=== PATIENT | male | born 1945 | race African-American/Black ===

== ENCOUNTER 2016-11-05 22:03 | Emergency (ER) | payer OTHER ==
[2016-11-05 22:54] LABS: MANUAL DIFF NEEDED? NO
--- NOTE | 2016-11-05 23:13 | PROVIDER DOCUMENTATION ---
HPI-EENT General - General Source: patient - History of Present Illness-EENT General EENT Location: reports: nose Severity: reports: moderate Onset/Duration: reports: 24 hours ago Timing: reports: still present Associated Symptoms: reports: denies symptoms - Nose Nose Problem Symptoms: nosebleed <RowlandDiane - Last Filed: 11/05/16 23:49> <Keith Joe - Last Filed: 11/05/16 23:50> - General Chief Complaint: Nose Bleed Stated Complaint: NOSE BLEED Time Seen by Provider: 11/05/16 22:36 Allergies/Adverse Reactions: Patient Allergies Allergy/AdvReac Type Severity Reaction Status Date / Time No Known Allergies Allergy Verified 09/24/12 13:59 Home Medications: Home Medication List Medication Instructions Recorded Confirmed Last Taken Type Allopurinol [Zyloprim] 100 mg PO DAILY 09/24/12 11/05/16 05/09/14 07:00 History Aspirin 325 mg PO DAILY 09/24/12 11/05/16 04/29/14 07:00 History Diclofenac 1% Gel [Voltaren 1% Gel] 2 gm TOP PRN PRN 09/24/12 11/05/16 05/03/14 21:00 History Topiramate [Topamax] 100 mg PO DAILY 09/24/12 11/05/16 05/09/14 17:00 History Tramadol HCl 50 mg PO Q6-8H PRN PRN 09/24/12 11/05/16 05/03/14 07:00 History Albuterol Sulfate [Proair Hfa] 2 puff IH 4XDAY 05/04/14 11/05/16 05/09/14 17:00 History Olopatadine HCl [Patanol] 1 drop OP BID 05/04/14 11/05/16 05/09/14 21:00 History Hydrocodone/APAP 10 mg/325 mg 1 each PO Q6H PRN PRN #15 tablet 05/11/14 Unknown Rx [[place]-10] - History of Present Illness-EE General Nature of Presenting Problem: 70 Y/O M presents to ED with EENT. Pt complains of right nose bleed that started yesterday stopped, and then began again this evening. Pt denies Fever, Chills,SOB,N,V,D,Dizziness (Diane Guallpa) Review of Systems - Adult - REVIEW OF SYSTEMS - ADULT Constitutional: denies: chills, fever Eyes: reports: no symptoms reported Ears, Nose, Mouth & Throat: reports: epistaxis Cardiovascular: reports: no symptoms reported Respiratory: reports: no symptoms reported Gastrointestinal: reports: no symptoms reported Genitourinary: reports: no symptoms reported Musculoskeletal: reports: no symptoms reported Integumentary: reports: no symptoms reported Neurological: reports: no symptoms reported Psychiatric: reports: no symptoms reported Endocrine: reports: no symptoms reported Hematologic/Lymphatic: reports: no symptoms reported Allergic/Immunologic: reports: no symptoms reported All Other Systems: Reviewed and Negative <Diane Guallpa - Last Filed: 11/05/16 23:49> Past History - Adult - PAST MEDICAL HISTORY-ADULT Review of Records: reports: Old Records Reviewed, Nursing Assessment Review, Medications Reviewed, Social history reviewed & non-contributory. - SOCIAL HISTORY Smoking: quit greater than 1 year Alcohol Use Frequency: occasionally Living Situation: family <Diane Guallpa - Last Filed: 11/05/16 23:49> Physical Exam- EENT - Physical Exam EENT Initial Vital Signs Reviewed: Yes General Appearance: appears well, alert, no apparent distress Eye Exam: bilateral eye: normal inspection, PERRL, EOMI Ear Exam: bilateral ear: auricle normal, canal normal, TM normal Nasal Exam: active bleeding Throat Exam: normal mouth inspection, pharynx normal, dental tenderness Neck: non-tender, full range of motion, supple, normal inspection Respiratory: chest non-tender, lungs clear, normal breath sounds Cardiovascular: normal peripheral pulses, regular rate, rhythm Abdominal Exam: normal bowel sounds, non tender, soft Lymphatic: no adenopathy Back Exam: normal inspection, no CVA tenderness, no vertebral tenderness Extremity: normal range of motion, non-tender, normal gait, normal inspection Integumentary: normal color, normal turgor, warm/dry Neurologic: conference planning manager II-XII nml as tested Psych/Mental Status: normal mood/affect, normal thought content, normal thought process, oriented x 3 <Diane Guallpa - Last Filed: 11/05/16 23:49> Progress <Diane Guallpa - Last Filed: 11/05/16 23:49> <Keith Joe - Last Filed: 11/05/16 23:50> - PLAN OF CARE/RESULTS Progress/Plan/Lab Results: Laboratory Tests 11/05/16 11/05/16 22:45 22:45 WBC 6.46 RBC 5.02 Hgb 14.2 Hct 43.3 MCV 86.3 MCH 28.3 MCHC 32.8 L RDW Std Deviation 14.9 H Plt Count 219 MPV 9.8 Immature Gran % (Auto) 0.2 Neut % (Auto) 51.4 Lymph % (Auto) 29.4 [place] % (Auto) 12.5 H Eos % (Auto) 6.0 Baso % (Auto) 0.5 Immature Gran # (Auto) 0.01 Neut # (Auto) 3.32 Lymph # (Auto) 1.90 [place] # (Auto) 0.81 H Eos # (Auto) 0.39 Baso # (Auto) 0.03 PT 13.8 INR 1.03 APTT (Factor Assay) 35.4 Orders Category Date Time Status CBC WITH DIFF [HEME] Stat Lab 11/05/16 22:[address] WITH INR [address] [COAG] Stat Lab 11/05/16 22:[address] [COAG] Stat Lab 11/05/16 22:45 Completed Vital Signs - 24 hr 11/05/16 22:12 Temperature 98.5 F Pulse Rate 85 Respiratory 18 Rate Blood Pressure 166/86 O2 Sat by Pulse 97 Oximetry (Diane Guallpa) Departure - Departure Time of Disposition Order: 23:49 Certified Medical Emergency: Emergent <Diane Guallpa - Last Filed: 11/05/16 23:49> - Departure Time of Disposition Order: 23:50 Certified Medical Emergency: Emergent <Keith Joe - Last Filed: 11/05/16 23:50> - Departure DIAGNOSIS: Nasal bleeding Disposition: HOME 01 Condition: Stable Additional Instructions: ED Follow Up Instructions: You have been treated by a care provider in the Emergency Department. These instructions are being provided to you so you can have an understanding of how to care for yourself upon discharge. Upon discharge from the Emergency Department, you are responsible for making arrangements for follow-up care by a physician of your choice. Take all prescribed medications as directed. Return to the Emergency Department immediately for any new or worsening symptoms. You may call the Physician Referral phone number at [phone] to obtain a list of Physicians who are taking new patients. Referrals: Keith Joe MD [Primary Care Provider] - Attestation - Scribe Verification/Attestation Scribe:: Diane Guallpa Acting as Scribe for:: Keith Joe Scribe documention review:: This chart was documented by a scribe and accurately reflects the service the provider performed and the decisions made by the provider. <Diane Guallpa - Last Filed: 11/05/16 23:49> Physician Attestation
[2016-11-05 23:20] LABS: BASO% 0.5 % (0.0-0.8); EOS# 0.39 X1000 (0.0-0.7); HEMATOCRIT 43.3 % (42.0-52.0); HEMOGLOBIN 14.2 g/dL (14.0-18.0); IMM GRAN# 0.01 X1000 (0.0-0.04); IMM GRAN% 0.2 % (0.0-0.5); LYMPH% 29.4 % (20.5-51.1); MCH 28.3 PG (27-31); MCHC 32.8 g/dL (33-37); MCV 86.3 FL (81-99); MONO# 0.81 X1000 (0.11-0.59); MONO% 12.5 % (1.7-9.3); MPV 9.8 FL (7.4-10.4); NEUT% 51.4 % (42.2-75.2); PLT 219 X1000 (130-400); RBC 5.02 XMIL (4.7-6.1)
[2016-11-05 23:31] LABS: INR 1.03 (0.86-1.15); PROTIME 13.8 Seconds (12.1-15.5)
[2016-11-05 23:32] LABS: PTT PL 35.4 Seconds (22.6-43.9)
[2016-11-06 00:26] VITALS: BP 178/87
== END 2016-11-06 00:24 | disposition home or self-care (01) ==
LOC: P.ED 22:03
DX: R04.0 Epistaxis (principal); Z79.82 Long term (current) use of aspirin; Z79.899 Other long term (current) drug therapy; Z87.891 Personal history of nicotine dependence
CPT/HCPCS: 85025; 85610; 85730